=== PATIENT | female | born 1995 | race African-American/Black ===

== ENCOUNTER 2018-08-26 16:12 | Emergency (ER) | payer OTHER ==
[~2018-08-26] VITALS: Ht 157.5 cm; Wt 79.4 kg
[2018-08-26] MEDS ORDERED: VALTREX 500 MG500 M1 PO (16:36)
[2018-08-26 17:28] LABS: URINE BILIRUBIN NEGATIVE (Negative); URINE BLOOD 1+ (Negative); URINE CLARITY CLEAR; URINE COLOR YELLOW; URINE GLUCOSE-RANDOM* NEGATIVE (Negative); URINE KETONES NEGATIVE (Negative); URINE LEUKOCYTES-REFLEX TRACE (Negative); URINE NITRITE-REFLEX NEGATIVE (Negative); URINE PROTEIN (DIPSTICK) NEGATIVE (Negative); URINE UROBILINOGEN 0.2 E.U./dl (0.2-1.0)
[2018-08-26 17:33] LABS: SQUAMOUS >10 Many /LPF (0-3)
[2018-08-26 17:34] LABS: BACTERIA-REFLEX 1-9 Few /HPF (None Seen); CASTS None Seen /LPF (None Seen); CRYSTALS None Seen /LPF (None Seen); URINE RBC 0-2 Rare /HPF (0-2); URINE WBC-REFLEX 0-5 Rare /HPF (0-5)
[2018-08-26] MEDS ORDERED: KEFLEX500 M1 PO (17:37)
[2018-08-26] MEDS ORDERED: DIFLUCAN200 MG PO (17:38)
[2018-08-26 17:46] VITALS: BP 127/80
== END 2018-08-26 17:41 | disposition home or self-care (01) ==
LOC: ER 16:12
PROVIDERS: Physician Assistant
DX: N39.0 Urinary tract infection, site not specified (principal)